=== PATIENT | male | born 1975 | race Caucasian/White ===

== ENCOUNTER 2017-05-31 11:45 | Emergency (ER) | payer OTHER ==
[~2017-05-31] VITALS: Ht 172.7 cm; Wt 86.4 kg
[2017-05-31] MEDS ORDERED: ASPIRIN 325 MG TABLET PO ONE (12:30)
[2017-05-31 13:06] LABS: BASOPHILS # (AUTO) 0.03 K/uL (0.00-0.20); BASOPHILS % (AUTO) 0.4 % (0.0-2.0); EOSINOPHILS # (AUTO) 0.05 K/uL (0.00-0.70); EOSINOPHILS % (AUTO) 0.61 % (1.0-6.0); HEMATOCRIT 43.9 % (41-53); HEMOGLOBIN 15.1 g/dL (13.5-17.5); LYMPHOCYTES # (AUTO) 2.4 K/uL (1.0-4.8); LYMPHOCYTES % (AUTO) 30.2 % (22.0-44.0); MEAN CORPUSCULAR HEMOGLOBIN 29.2 pg (26.0-34.0); MEAN CORPUSCULAR HGB CONC 34.4 G/dL (31.0-37.0); MEAN CORPUSCULAR VOLUME 85 fL (80-100); MONOCYTES # (AUTO) 0.7 K/uL (0.1-1.0); MONOCYTES % (AUTO) 8.9 % (2.0-9.0); NEUTROPHILS # (AUTO) 4.7 K/uL (1.8-7.7); NEUTROPHILS % (AUTO) 59.9 % (40.0-70.0); PLATELET COUNT (AUTO) 247 K/uL (150-450); RED BLOOD CELL COUNT(AUTO) 5.16 MIL/uL (4.50-5.90); RED CELL DISTRIBUTION WIDTH 13.3 % (11.5-14.5); WHITE BLOOD COUNT (AUTO) 7.8 K/uL (4.5-11.0)
[2017-05-31 13:15] LABS: PROTHROMBIN TIME 10.7 SEC (9.4-11.6)
[2017-05-31 13:26] LABS: B-TYPE NATRIURETIC PEPTIDE 20 pg/mL (0-100)
[2017-05-31 13:27] LABS: ANION GAP 7 mmol/L (8-16); CALCIUM, TOTAL 8.6 mg/dL (8.8-10.5); CARBON DIOXIDE 30 mmol/L (22-29); CHLORIDE 103 mmol/L (98-107); CREATININE 1.01 mg/dL (0.60-1.30); GLOMERULAR FILTR. RATE CALC > 60 mL/min (>60); POTASSIUM 3.7 mmol/L (3.5-5.1); SODIUM SERUM 140 mmol/L (136-145); UREA NITROGEN, BLOOD 14 mg/dL (7-18)
[2017-05-31 13:38] LABS: ALANINE AMINOTRANSFERASE 39 U/L (12-78); ALBUMIN 3.9 g/dL (3.4-5.0); ASPARTATE AMINOTRANSFERASE 20 U/L (15-37); BILIRUBIN,TOTAL 0.3 mg/dL (0.1-1.0); CREATINE KINASE, TOTAL 304 U/L (39-308); TOTAL PROTEIN, SERUM 7.9 g/dL (6.4-8.2)
[2017-05-31 14:04] LABS: CREATINE KINASE MB 1.4 ng/mL (0-5)
[2017-05-31 14:25] LABS: ADD UA MICROSCOPIC NO; APPEARANCE,URINE CLEAR (CLEAR); GLUCOSE, URINE (UA) NEGATIVE (NEGATIVE); KETONES,URINE NEGATIVE (NEGATIVE); LEUKOCYTE ESTERASE ,URINE NEGATIVE (NEGATIVE); OCCULT BLOOD,URINE NEGATIVE (NEGATIVE); PROTEIN,URINE NEGATIVE (NEGATIVE)
[2017-05-31 15:30] VITALS: BP 127/78
== END 2017-05-31 15:34 | disposition home or self-care (01) ==
LOC: EMS 11:48
DX: M54.9 Dorsalgia, unspecified (principal); F41.9 Anxiety disorder, unspecified; R07.89 Other chest pain; I10 Essential (primary) hypertension; R53.1 Weakness
CPT/HCPCS: 93005; 99285

== ENCOUNTER 2017-11-15 03:46 | Emergency (ER) | payer OTHER ==
[~2017-11-15] VITALS: Ht 172.7 cm; Wt 86.0 kg
[2017-11-15] MEDS ORDERED: LORazepam 1 MG TABLET PO ONE (04:30)
[2017-11-15 04:39] VITALS: BP 136/68
== END 2017-11-15 04:41 | disposition home or self-care (01) ==
LOC: EMS 03:48
DX: F41.9 Anxiety disorder, unspecified (principal); I10 Essential (primary) hypertension
CPT/HCPCS: 99284

== ENCOUNTER 2020-12-09 06:17 | Emergency (ER) | payer OTHER ==
[~2020-12-09] VITALS: Ht 172.7 cm; Wt 75.0 kg
[2020-12-09] MEDS ORDERED: IBUPROFEN 600 MG TABLET PO ONE (07:45)
[2020-12-09 08:18] VITALS: BP 133/93
== END 2020-12-09 09:06 | disposition home or self-care (01) ==
LOC: EMS 06:19
DX: R51.9 Headache, unspecified (principal); I10 Essential (primary) hypertension; F41.9 Anxiety disorder, unspecified
CPT/HCPCS: Z7502; Z7610

== ENCOUNTER 2021-01-21 07:24 | Emergency (ER) | payer OTHER ==
[~2021-01-21] VITALS: Ht 172.7 cm; Wt 91.8 kg
[2021-01-21 08:21] VITALS: BP 131/75
== END 2021-01-21 08:26 | disposition home or self-care (01) ==
LOC: EMS 07:26
DX: H10.9 Unspecified conjunctivitis (principal); J30.9 Allergic rhinitis, unspecified
CPT/HCPCS: 99283; Z7502

== ENCOUNTER 2021-02-02 09:27 | Emergency (ER) | payer OTHER ==
[~2021-02-02] VITALS: Ht 177.8 cm; Wt 95.5 kg
[2021-02-02 09:32] VITALS: BP 132/64
[2021-02-02] MEDS ORDERED: POLYMYXIN B/TRIMETHOPRIM 10 ML OPHTHALMIC SOLUTION OU ONE (10:00)
== END 2021-02-02 10:15 | disposition home or self-care (01) ==
LOC: EMS 09:36
DX: H10.9 Unspecified conjunctivitis (principal); F41.9 Anxiety disorder, unspecified; I10 Essential (primary) hypertension
CPT/HCPCS: 99283

== ENCOUNTER 2021-02-07 08:47 | Emergency (ER) | payer OTHER ==
[~2021-02-07] VITALS: Ht 175.3 cm; Wt 86.4 kg
[2021-02-07 10:04] VITALS: BP 118/70
== END 2021-02-07 10:04 | disposition home or self-care (01) ==
LOC: EMS 08:51
DX: Z02.79 Encounter for issue of other medical certificate (principal); F41.9 Anxiety disorder, unspecified; I10 Essential (primary) hypertension
CPT/HCPCS: 99281; Z7502

== ENCOUNTER 2022-05-02 06:56 | Emergency (ER) | payer OTHER ==
[~2022-05-02] VITALS: Ht 170.2 cm; Wt 82.3 kg
[2022-05-02 06:59] VITALS: BP 126/72
[2022-05-02] MEDS ORDERED: NEOMYCIN/POLYMYXIN B/HYDROCORT 10 ML OTIC SOLUTION AD ONE (07:45)
== END 2022-05-02 08:40 | disposition home or self-care (01) ==
LOC: EMS 06:57
DX: H60.91 Unspecified otitis externa, right ear (principal); H61.21 Impacted cerumen, right ear; F41.9 Anxiety disorder, unspecified; I10 Essential (primary) hypertension
CPT/HCPCS: 99283

== ENCOUNTER 2024-02-28 19:19 | Emergency (ER) | payer SELFPAY ==
[~2024-02-28] VITALS: Ht 170.2 cm; Wt 85.0 kg
[2024-02-28] MEDS: LORazepam 1 MG TABLET PO ONE (20:01)
[2024-02-28] MEDS: IBUPROFEN 600 MG TABLET PO ONE (20:01)
[2024-02-28 20:53] VITALS: BP 129/80; PULSE 87; RESP 16; TEMP 97.9
== END 2024-02-28 21:15 | disposition home or self-care (01) ==
LOC: EMS 19:19
DX: F41.9 Anxiety disorder, unspecified (principal); G44.209 Tension-type headache, unspecified, not intractable; I10 Essential (primary) hypertension
CPT/HCPCS: 99283